=== PATIENT | male | born 1960 | race African-American/Black ===

== ENCOUNTER 2022-06-15 14:00 | Inpatient (IN) | payer OTHER ==
[2022-06-15 15:07] VITALS: BMI 28.2
[2022-06-15] MEDS ORDERED: ACETAMINOPHEN 325 MG TABLET (FP) PO PRN (16:57)
[2022-06-15] MEDS ORDERED: MAGNESIUM HYDROX 2400MG/30ML ORAL SUSPENSION 30 ML CUP PO PRN (16:57)
[2022-06-15] MEDS ORDERED: MAGNESIUM CITRATE 300 ML BOTTLE PO PRN (16:57)
[2022-06-15] MEDS ORDERED: NICOTINE 10 MG CARTRIDGE (INHALER) IH PRN (16:57)
[2022-06-15] MEDS ORDERED: LOPERAMIDE HCL 2 MG CAPSULE PO PRN (16:57)
[2022-06-15] MEDS ORDERED: MAG HYDROX/AL HYDROX/SIMETH 30 ML UNIT-DOSE CUP PO PRN (16:57)
[2022-06-15] MEDS ORDERED: guaiFENesin 200 MG/10 ML 10 ML UNIT-DOSE CUPS PO PRN (16:57)
[2022-06-15] MEDS ORDERED: P-EPHED 60MG/TRIPROLIDI 2.5MG TABLET PO PRN (16:57)
[2022-06-15] MEDS: THIAMINE HCL 100 MG TABLET (FP) PO SCH (21:35)
[2022-06-15] MEDS: MELATONIN 5 MG TABLETS PO PRN (21:35)
[2022-06-15] MEDS: ATORVASTATIN CA 20 MG TABLET (FP) PO SCH (21:35)
[2022-06-15] MEDS: INSULIN SLIDING SCALE (NOVOLOG) 1 VIAL SQ SCH (21:41)
[2022-06-15] MEDS ORDERED: TUBERCULIN PPD 5 TU/0.1ML VIAL ID ONE (21:42)
[2022-06-15] MEDS ORDERED: MELATONIN 5 MG TABLETS PO SCH (22:00)
[2022-06-16] MEDS: INSULIN SLIDING SCALE (NOVOLOG) 1 VIAL SQ SCH ×4 (06:10→21:38)
[2022-06-16] MEDS: amLODIPine BESYLATE 10 MG TABLET (FP) PO SCH (09:25)
[2022-06-16] MEDS: PRENATAL VITAMINS W/ FOLIC ACID TABLET (FP) PO SCH (09:25)
[2022-06-16] MEDS: LISINOPRIL 10 MG TABLET PO SCH (09:25)
[2022-06-16] MEDS: BACITRACIN 15 GM TUBE TOPICAL OINTMENT TP SCH ×2 (10:29→21:35)
[2022-06-16] MEDS: methaDONE HCL 40 MG DISPERSABLE TABLET PO SCH (10:33)
[2022-06-16 11:57] LABS: HEMATOCRIT 30.3 % (35.4-49); MCH 28.3 pg (25.7-33.7); MEAN CELL VOLUME 85.9 fl (80-96); MEAN PLT VOLUME 8.5 fl (7.5-11.1); PLATELET COUNT 212 10^3/uL (134-434); RBC 3.53 M/mm3 (4.00-5.60); RDW 16.7 % (11.9-15.9); WHITE BLOOD COUNT 6.3 K/mm3 (4.0-10.0)
[2022-06-16 12:01] LABS: PH,URINE 5.5 (5.0-8.0); URINE APPEARANCE CLEAR; URINE BILIRUBIN NEGATIVE (NEGATIVE); URINE COLOR YELLOW; URINE GLUCOSE (UA) NEGATIVE (NEGATIVE); URINE KETONE NEGATIVE (NEGATIVE); URINE LEUK ESTERASE NEGATIVE (NEGATIVE); URINE NITRITE NEGATIVE (NEGATIVE); URINE PROTEIN NEGATIVE (NEGATIVE); URINE UROBILINOGEN 0.2 mg/dL (0.2-1.0)
[2022-06-16 12:47] LABS: ALBUMIN 3.2 g/dl (3.4-5.0); BLOOD UREA NITROGEN 21.2 mg/dL (7-18); CALCIUM 8.6 mg/dL (8.5-10.1)
[2022-06-16 12:51] LABS: CREATININE 1.2 mg/dL (0.55-1.3)
[2022-06-16 12:52] LABS: BILIRUBIN,TOTAL 0.4 mg/dL (0.2-1); TOT PROT 6.7 g/dl (6.4-8.2)
[2022-06-16] MEDS: ESCITALOPRAM OXALATE 10 MG TABLET PO SCH (13:06)
[2022-06-16 13:36] LABS: SYPHILIS W/ RPR CONF REACTIVE (NONREACTIVE)
[2022-06-16 13:38] LABS: HIV INTERPRETATION NEGATIVE (NEGATIVE)
[2022-06-16] MEDS: ATORVASTATIN CA 20 MG TABLET (FP) PO SCH (21:35)
[2022-06-16] MEDS: THIAMINE HCL 100 MG TABLET (FP) PO SCH (21:35)
[2022-06-16] MEDS: MELATONIN 5 MG TABLETS PO PRN (21:35)
[2022-06-17] MEDS: INSULIN SLIDING SCALE (NOVOLOG) 1 VIAL SQ SCH ×4 (06:25→21:16)
[2022-06-17] MEDS: methaDONE HCL 40 MG DISPERSABLE TABLET PO SCH (06:26)
[2022-06-17] MEDS: PRENATAL VITAMINS W/ FOLIC ACID TABLET (FP) PO SCH (09:37)
[2022-06-17] MEDS: ESCITALOPRAM OXALATE 10 MG TABLET PO SCH (09:37)
[2022-06-17] MEDS: amLODIPine BESYLATE 10 MG TABLET (FP) PO SCH (09:37)
[2022-06-17] MEDS: LISINOPRIL 10 MG TABLET PO SCH (09:37)
[2022-06-17] MEDS: BACITRACIN 15 GM TUBE TOPICAL OINTMENT TP SCH ×2 (09:39→21:15)
[2022-06-17] MEDS: THIAMINE HCL 100 MG TABLET (FP) PO SCH (21:15)
[2022-06-17] MEDS: ATORVASTATIN CA 20 MG TABLET (FP) PO SCH (21:15)
[2022-06-17] MEDS: MELATONIN 5 MG TABLETS PO PRN (21:16)
[2022-06-18] MEDS: INSULIN SLIDING SCALE (NOVOLOG) 1 VIAL SQ SCH ×4 (06:47→21:08)
[2022-06-18] MEDS: methaDONE HCL 40 MG DISPERSABLE TABLET PO SCH (06:48)
[2022-06-18] MEDS: amLODIPine BESYLATE 10 MG TABLET (FP) PO SCH (09:44)
[2022-06-18] MEDS: LISINOPRIL 10 MG TABLET PO SCH (09:44)
[2022-06-18] MEDS: PRENATAL VITAMINS W/ FOLIC ACID TABLET (FP) PO SCH (09:44)
[2022-06-18] MEDS: ESCITALOPRAM OXALATE 10 MG TABLET PO SCH (09:44)
[2022-06-18] MEDS: BACITRACIN 15 GM TUBE TOPICAL OINTMENT TP SCH ×2 (09:45→21:06)
[2022-06-18] MEDS: THIAMINE HCL 100 MG TABLET (FP) PO SCH (21:06)
[2022-06-18] MEDS: MELATONIN 5 MG TABLETS PO PRN (21:06)
[2022-06-18] MEDS: ATORVASTATIN CA 20 MG TABLET (FP) PO SCH (21:06)
[2022-06-19] MEDS: methaDONE HCL 40 MG DISPERSABLE TABLET PO SCH (06:01)
[2022-06-19] MEDS: INSULIN SLIDING SCALE (NOVOLOG) 1 VIAL SQ SCH ×4 (07:07→21:05)
[2022-06-19] MEDS: ESCITALOPRAM OXALATE 10 MG TABLET PO SCH (09:48)
[2022-06-19] MEDS: amLODIPine BESYLATE 10 MG TABLET (FP) PO SCH (09:48)
[2022-06-19] MEDS: LISINOPRIL 10 MG TABLET PO SCH ×3 (09:48→21:04)
[2022-06-19] MEDS: PRENATAL VITAMINS W/ FOLIC ACID TABLET (FP) PO SCH (09:48)
[2022-06-19] MEDS: BACITRACIN 15 GM TUBE TOPICAL OINTMENT TP SCH ×2 (09:49→21:05)
[2022-06-19] MEDS ORDERED: INSULIN SLIDING SCALE (NOVOLOG) 1 VIAL SQ ONE (11:08)
[2022-06-19] MEDS: THIAMINE HCL 100 MG TABLET (FP) PO SCH (21:04)
[2022-06-19] MEDS: ATORVASTATIN CA 20 MG TABLET (FP) PO SCH (21:04)
[2022-06-19] MEDS: MELATONIN 5 MG TABLETS PO PRN (21:04)
[2022-06-20] MEDS: methaDONE HCL 40 MG DISPERSABLE TABLET PO SCH (06:25)
[2022-06-20] MEDS: INSULIN SLIDING SCALE (NOVOLOG) 1 VIAL SQ SCH ×4 (06:27→21:15)
[2022-06-20] MEDS: PRENATAL VITAMINS W/ FOLIC ACID TABLET (FP) PO SCH (09:59)
[2022-06-20] MEDS: amLODIPine BESYLATE 10 MG TABLET (FP) PO SCH (10:00)
[2022-06-20] MEDS: ESCITALOPRAM OXALATE 10 MG TABLET PO SCH (10:00)
[2022-06-20] MEDS: LISINOPRIL 10 MG TABLET PO SCH ×2 (10:00→21:13)
[2022-06-20] MEDS: BACITRACIN 15 GM TUBE TOPICAL OINTMENT TP SCH ×2 (10:01→21:13)
[2022-06-20] MEDS: MELATONIN 5 MG TABLETS PO PRN (21:13)
[2022-06-20] MEDS: THIAMINE HCL 100 MG TABLET (FP) PO SCH (21:13)
[2022-06-20] MEDS: ATORVASTATIN CA 20 MG TABLET (FP) PO SCH (21:13)
[2022-06-21] MEDS: methaDONE HCL 40 MG DISPERSABLE TABLET PO SCH (06:06)
[2022-06-21] MEDS: INSULIN SLIDING SCALE (NOVOLOG) 1 VIAL SQ SCH ×4 (06:09→21:00)
[2022-06-21] MEDS: PRENATAL VITAMINS W/ FOLIC ACID TABLET (FP) PO SCH (10:06)
[2022-06-21] MEDS: amLODIPine BESYLATE 10 MG TABLET (FP) PO SCH (10:06)
[2022-06-21] MEDS: BACITRACIN 15 GM TUBE TOPICAL OINTMENT TP SCH ×2 (10:06→21:00)
[2022-06-21] MEDS: LISINOPRIL 10 MG TABLET PO SCH ×2 (10:06→21:00)
[2022-06-21] MEDS: ESCITALOPRAM OXALATE 10 MG TABLET PO SCH (10:06)
[2022-06-21] MEDS: ATORVASTATIN CA 20 MG TABLET (FP) PO SCH (21:00)
[2022-06-21] MEDS: THIAMINE HCL 100 MG TABLET (FP) PO SCH (21:00)
[2022-06-21] MEDS: MELATONIN 5 MG TABLETS PO PRN (21:00)
[2022-06-22] MEDS: methaDONE HCL 40 MG DISPERSABLE TABLET PO SCH (05:52)
[2022-06-22] MEDS ORDERED: INSULIN SLIDING SCALE (NOVOLOG) 1 VIAL SQ ONE (05:52)
[2022-06-22] MEDS: hydrOXYzine PAMOATE 25 MG CAPSULE (FP) PO PRN (07:02)
[2022-06-22] MEDS: INSULIN SLIDING SCALE (NOVOLOG) 1 VIAL SQ SCH ×4 (07:02→21:03)
[2022-06-22] MEDS: amLODIPine BESYLATE 10 MG TABLET (FP) PO SCH (08:59)
[2022-06-22] MEDS: BACITRACIN 15 GM TUBE TOPICAL OINTMENT TP SCH ×2 (08:59→21:03)
[2022-06-22] MEDS: ESCITALOPRAM OXALATE 10 MG TABLET PO SCH (08:59)
[2022-06-22] MEDS: LISINOPRIL 10 MG TABLET PO SCH ×2 (08:59→21:02)
[2022-06-22] MEDS: PRENATAL VITAMINS W/ FOLIC ACID TABLET (FP) PO SCH (09:00)
[2022-06-22] MEDS: MELATONIN 5 MG TABLETS PO PRN (21:02)
[2022-06-22] MEDS: ATORVASTATIN CA 20 MG TABLET (FP) PO SCH (21:02)
[2022-06-22] MEDS: THIAMINE HCL 100 MG TABLET (FP) PO SCH (21:03)
[2022-06-23] MEDS: methaDONE HCL 40 MG DISPERSABLE TABLET PO SCH (06:33)
[2022-06-23] MEDS: INSULIN SLIDING SCALE (NOVOLOG) 1 VIAL SQ SCH ×4 (06:36→21:16)
[2022-06-23] MEDS: PRENATAL VITAMINS W/ FOLIC ACID TABLET (FP) PO SCH (10:10)
[2022-06-23] MEDS: amLODIPine BESYLATE 10 MG TABLET (FP) PO SCH (10:11)
[2022-06-23] MEDS: BACITRACIN 15 GM TUBE TOPICAL OINTMENT TP SCH ×2 (10:11→21:17)
[2022-06-23] MEDS: ESCITALOPRAM OXALATE 10 MG TABLET PO SCH (10:11)
[2022-06-23] MEDS: LISINOPRIL 10 MG TABLET PO SCH ×2 (10:11→21:16)
[2022-06-23] MEDS: ATORVASTATIN CA 20 MG TABLET (FP) PO SCH (21:16)
[2022-06-23] MEDS: THIAMINE HCL 100 MG TABLET (FP) PO SCH (21:16)
[2022-06-23] MEDS: MELATONIN 5 MG TABLETS PO PRN (21:16)
[2022-06-24] MEDS: methaDONE HCL 40 MG DISPERSABLE TABLET PO SCH (06:08)
[2022-06-24] MEDS: INSULIN SLIDING SCALE (NOVOLOG) 1 VIAL SQ SCH ×4 (06:11→21:06)
[2022-06-24] MEDS: LISINOPRIL 10 MG TABLET PO SCH ×2 (09:39→21:04)
[2022-06-24] MEDS: ESCITALOPRAM OXALATE 10 MG TABLET PO SCH (09:39)
[2022-06-24] MEDS: PRENATAL VITAMINS W/ FOLIC ACID TABLET (FP) PO SCH (09:39)
[2022-06-24] MEDS: BACITRACIN 15 GM TUBE TOPICAL OINTMENT TP SCH ×2 (09:40→21:04)
[2022-06-24] MEDS: amLODIPine BESYLATE 10 MG TABLET (FP) PO SCH (09:40)
[2022-06-24] MEDS ORDERED: INSULIN SLIDING SCALE (NOVOLOG) 1 VIAL SQ ONE (12:00)
[2022-06-24] MEDS: ATORVASTATIN CA 20 MG TABLET (FP) PO SCH (21:04)
[2022-06-24] MEDS: MELATONIN 5 MG TABLETS PO PRN (21:04)
[2022-06-24] MEDS: THIAMINE HCL 100 MG TABLET (FP) PO SCH (21:04)
[2022-06-25] MEDS: methaDONE HCL 40 MG DISPERSABLE TABLET PO SCH (05:58)
[2022-06-25] MEDS: INSULIN SLIDING SCALE (NOVOLOG) 1 VIAL SQ SCH ×4 (06:00→21:04)
[2022-06-25] MEDS: ESCITALOPRAM OXALATE 10 MG TABLET PO SCH (09:22)
[2022-06-25] MEDS: PRENATAL VITAMINS W/ FOLIC ACID TABLET (FP) PO SCH (09:22)
[2022-06-25] MEDS: LISINOPRIL 10 MG TABLET PO SCH ×2 (09:22→21:03)
[2022-06-25] MEDS: amLODIPine BESYLATE 10 MG TABLET (FP) PO SCH (09:22)
[2022-06-25] MEDS: BACITRACIN 15 GM TUBE TOPICAL OINTMENT TP SCH ×2 (09:23→21:03)
[2022-06-25] MEDS: THIAMINE HCL 100 MG TABLET (FP) PO SCH (21:03)
[2022-06-25] MEDS: ATORVASTATIN CA 20 MG TABLET (FP) PO SCH (21:03)
[2022-06-25] MEDS: MELATONIN 5 MG TABLETS PO PRN (21:03)
[2022-06-26] MEDS: methaDONE HCL 40 MG DISPERSABLE TABLET PO SCH (06:03)
[2022-06-26] MEDS: INSULIN SLIDING SCALE (NOVOLOG) 1 VIAL SQ SCH ×4 (06:05→21:45)
[2022-06-26] MEDS: BACITRACIN 15 GM TUBE TOPICAL OINTMENT TP SCH ×2 (10:09→21:45)
[2022-06-26] MEDS: amLODIPine BESYLATE 10 MG TABLET (FP) PO SCH (10:10)
[2022-06-26] MEDS: ESCITALOPRAM OXALATE 10 MG TABLET PO SCH (10:10)
[2022-06-26] MEDS: PRENATAL VITAMINS W/ FOLIC ACID TABLET (FP) PO SCH (10:10)
[2022-06-26] MEDS: LISINOPRIL 10 MG TABLET PO SCH ×2 (10:10→21:45)
[2022-06-26] MEDS: ATORVASTATIN CA 20 MG TABLET (FP) PO SCH (21:45)
[2022-06-26] MEDS: MELATONIN 5 MG TABLETS PO PRN (21:45)
[2022-06-26] MEDS: THIAMINE HCL 100 MG TABLET (FP) PO SCH (21:45)
[2022-06-27] MEDS: INSULIN SLIDING SCALE (NOVOLOG) 1 VIAL SQ SCH ×4 (06:14→21:17)
[2022-06-27] MEDS: methaDONE HCL 40 MG DISPERSABLE TABLET PO SCH (06:15)
[2022-06-27] MEDS: IBUPROFEN 400 MG TABLET (FP) PO PRN (06:17)
[2022-06-27] MEDS: hydrOXYzine PAMOATE 25 MG CAPSULE (FP) PO PRN (06:17)
[2022-06-27] MEDS: amLODIPine BESYLATE 10 MG TABLET (FP) PO SCH ×2 (06:19→11:00)
[2022-06-27] MEDS: PRENATAL VITAMINS W/ FOLIC ACID TABLET (FP) PO SCH (10:25)
[2022-06-27] MEDS: ESCITALOPRAM OXALATE 10 MG TABLET PO SCH (10:26)
[2022-06-27] MEDS: BACITRACIN 15 GM TUBE TOPICAL OINTMENT TP SCH ×2 (10:26→21:16)
[2022-06-27] MEDS: LISINOPRIL 10 MG TABLET PO SCH ×2 (11:00→21:16)
[2022-06-27] MEDS: MELATONIN 5 MG TABLETS PO PRN (21:16)
[2022-06-27] MEDS: ATORVASTATIN CA 20 MG TABLET (FP) PO SCH (21:16)
[2022-06-27] MEDS: THIAMINE HCL 100 MG TABLET (FP) PO SCH (21:16)
[2022-06-28] MEDS: methaDONE HCL 40 MG DISPERSABLE TABLET PO SCH (06:25)
[2022-06-28] MEDS: INSULIN SLIDING SCALE (NOVOLOG) 1 VIAL SQ SCH ×4 (06:29→21:47)
[2022-06-28] MEDS: amLODIPine BESYLATE 10 MG TABLET (FP) PO SCH (10:02)
[2022-06-28] MEDS: ESCITALOPRAM OXALATE 10 MG TABLET PO SCH (10:02)
[2022-06-28] MEDS: PRENATAL VITAMINS W/ FOLIC ACID TABLET (FP) PO SCH (10:02)
[2022-06-28] MEDS: LISINOPRIL 10 MG TABLET PO SCH ×2 (10:02→21:00)
[2022-06-28] MEDS: BACITRACIN 15 GM TUBE TOPICAL OINTMENT TP SCH ×2 (10:02→21:00)
[2022-06-28] MEDS: THIAMINE HCL 100 MG TABLET (FP) PO SCH (21:00)
[2022-06-28] MEDS: ATORVASTATIN CA 20 MG TABLET (FP) PO SCH (21:00)
[2022-06-28] MEDS: MELATONIN 5 MG TABLETS PO PRN (21:00)
[2022-06-28] MEDS ORDERED: INSULIN (NOVOLOG) ASPART 100 UNITS/ML 10ML VIAL SQ ONE (21:07)
[2022-06-29] MEDS: methaDONE HCL 40 MG DISPERSABLE TABLET PO SCH (05:57)
[2022-06-29] MEDS: INSULIN SLIDING SCALE (NOVOLOG) 1 VIAL SQ SCH ×4 (06:02→21:00)
[2022-06-29] MEDS: hydrOXYzine PAMOATE 25 MG CAPSULE (FP) PO PRN (06:04)
[2022-06-29] MEDS: LISINOPRIL 10 MG TABLET PO SCH ×2 (10:18→21:00)
[2022-06-29] MEDS: ESCITALOPRAM OXALATE 10 MG TABLET PO SCH (10:18)
[2022-06-29] MEDS: PRENATAL VITAMINS W/ FOLIC ACID TABLET (FP) PO SCH (10:18)
[2022-06-29] MEDS: amLODIPine BESYLATE 10 MG TABLET (FP) PO SCH (10:18)
[2022-06-29] MEDS: BACITRACIN 15 GM TUBE TOPICAL OINTMENT TP SCH ×2 (10:18→21:00)
[2022-06-29] MEDS ORDERED: INSULIN SLIDING SCALE (NOVOLOG) 1 VIAL SQ ONE (12:13)
[2022-06-29] MEDS: THIAMINE HCL 100 MG TABLET (FP) PO SCH (21:00)
[2022-06-29] MEDS: MELATONIN 5 MG TABLETS PO PRN (21:00)
[2022-06-29] MEDS: ATORVASTATIN CA 20 MG TABLET (FP) PO SCH (21:00)
[2022-06-30] MEDS: INSULIN SLIDING SCALE (NOVOLOG) 1 VIAL SQ SCH ×4 (06:11→21:32)
[2022-06-30] MEDS: hydrOXYzine PAMOATE 25 MG CAPSULE (FP) PO PRN (06:12)
[2022-06-30] MEDS: methaDONE HCL 40 MG DISPERSABLE TABLET PO SCH (06:12)
[2022-06-30] MEDS: PRENATAL VITAMINS W/ FOLIC ACID TABLET (FP) PO SCH (10:09)
[2022-06-30] MEDS: LISINOPRIL 10 MG TABLET PO SCH ×2 (10:10→21:30)
[2022-06-30] MEDS: BACITRACIN 15 GM TUBE TOPICAL OINTMENT TP SCH ×2 (10:10→22:32)
[2022-06-30] MEDS: amLODIPine BESYLATE 10 MG TABLET (FP) PO SCH (10:10)
[2022-06-30] MEDS: ESCITALOPRAM OXALATE 10 MG TABLET PO SCH (10:10)
[2022-06-30] MEDS: ATORVASTATIN CA 20 MG TABLET (FP) PO SCH (21:30)
[2022-06-30] MEDS: MELATONIN 5 MG TABLETS PO PRN (21:30)
[2022-06-30] MEDS: THIAMINE HCL 100 MG TABLET (FP) PO SCH (21:30)
[2022-07-01] MEDS: hydrOXYzine PAMOATE 25 MG CAPSULE (FP) PO PRN (05:57)
[2022-07-01] MEDS: methaDONE HCL 40 MG DISPERSABLE TABLET PO SCH (05:57)
[2022-07-01] MEDS: INSULIN SLIDING SCALE (NOVOLOG) 1 VIAL SQ SCH ×4 (06:00→21:42)
[2022-07-01] MEDS: ESCITALOPRAM OXALATE 10 MG TABLET PO SCH (10:19)
[2022-07-01] MEDS: PRENATAL VITAMINS W/ FOLIC ACID TABLET (FP) PO SCH (10:19)
[2022-07-01] MEDS: LISINOPRIL 10 MG TABLET PO SCH ×2 (10:19→21:38)
[2022-07-01] MEDS: amLODIPine BESYLATE 10 MG TABLET (FP) PO SCH (10:19)
[2022-07-01] MEDS: BACITRACIN 15 GM TUBE TOPICAL OINTMENT TP SCH ×2 (10:20→21:38)
[2022-07-01] MEDS ORDERED: INSULIN SLIDING SCALE (NOVOLOG) 1 VIAL SQ ONE (11:55)
[2022-07-01] MEDS: THIAMINE HCL 100 MG TABLET (FP) PO SCH (21:39)
[2022-07-01] MEDS: MELATONIN 5 MG TABLETS PO PRN (21:39)
[2022-07-01] MEDS: ATORVASTATIN CA 20 MG TABLET (FP) PO SCH (21:39)
[2022-07-02] MEDS: methaDONE HCL 40 MG DISPERSABLE TABLET PO SCH (05:53)
[2022-07-02] MEDS: hydrOXYzine PAMOATE 25 MG CAPSULE (FP) PO PRN (05:53)
[2022-07-02] MEDS: INSULIN SLIDING SCALE (NOVOLOG) 1 VIAL SQ SCH ×4 (06:06→22:00)
[2022-07-02] MEDS: PRENATAL VITAMINS W/ FOLIC ACID TABLET (FP) PO SCH (09:59)
[2022-07-02] MEDS: BACITRACIN 15 GM TUBE TOPICAL OINTMENT TP SCH ×2 (09:59→21:24)
[2022-07-02] MEDS: LISINOPRIL 10 MG TABLET PO SCH ×2 (10:00→21:24)
[2022-07-02] MEDS: ESCITALOPRAM OXALATE 10 MG TABLET PO SCH (10:00)
[2022-07-02] MEDS: amLODIPine BESYLATE 10 MG TABLET (FP) PO SCH (10:00)
[2022-07-02] MEDS: ATORVASTATIN CA 20 MG TABLET (FP) PO SCH (21:24)
[2022-07-02] MEDS: THIAMINE HCL 100 MG TABLET (FP) PO SCH (21:24)
[2022-07-02] MEDS: MELATONIN 5 MG TABLETS PO PRN (21:24)
[2022-07-03] MEDS: INSULIN SLIDING SCALE (NOVOLOG) 1 VIAL SQ SCH ×4 (06:02→21:00)
[2022-07-03] MEDS: IBUPROFEN 400 MG TABLET (FP) PO PRN (06:03)
[2022-07-03] MEDS: hydrOXYzine PAMOATE 25 MG CAPSULE (FP) PO PRN (06:03)
[2022-07-03] MEDS: methaDONE HCL 40 MG DISPERSABLE TABLET PO SCH (06:03)
[2022-07-03] MEDS: amLODIPine BESYLATE 10 MG TABLET (FP) PO SCH (09:57)
[2022-07-03] MEDS: BACITRACIN 15 GM TUBE TOPICAL OINTMENT TP SCH ×2 (09:57→21:01)
[2022-07-03] MEDS: ESCITALOPRAM OXALATE 10 MG TABLET PO SCH (09:57)
[2022-07-03] MEDS: LISINOPRIL 10 MG TABLET PO SCH ×2 (09:57→21:00)
[2022-07-03] MEDS: PRENATAL VITAMINS W/ FOLIC ACID TABLET (FP) PO SCH (09:58)
[2022-07-03] MEDS: MELATONIN 5 MG TABLETS PO PRN (21:00)
[2022-07-03] MEDS: THIAMINE HCL 100 MG TABLET (FP) PO SCH (21:00)
[2022-07-03] MEDS: ATORVASTATIN CA 20 MG TABLET (FP) PO SCH (21:00)
[2022-07-04] MEDS: hydrOXYzine PAMOATE 25 MG CAPSULE (FP) PO PRN (05:58)
[2022-07-04] MEDS: methaDONE HCL 40 MG DISPERSABLE TABLET PO SCH (05:59)
[2022-07-04] MEDS: INSULIN SLIDING SCALE (NOVOLOG) 1 VIAL SQ SCH ×4 (06:00→21:03)
[2022-07-04] MEDS: BACITRACIN 15 GM TUBE TOPICAL OINTMENT TP SCH ×2 (10:35→21:03)
[2022-07-04] MEDS: LISINOPRIL 10 MG TABLET PO SCH ×2 (10:35→21:03)
[2022-07-04] MEDS: ESCITALOPRAM OXALATE 10 MG TABLET PO SCH (10:36)
[2022-07-04] MEDS: amLODIPine BESYLATE 10 MG TABLET (FP) PO SCH (10:36)
[2022-07-04] MEDS: PRENATAL VITAMINS W/ FOLIC ACID TABLET (FP) PO SCH (10:36)
[2022-07-04] MEDS: THIAMINE HCL 100 MG TABLET (FP) PO SCH (21:02)
[2022-07-04] MEDS: MELATONIN 5 MG TABLETS PO PRN (21:02)
[2022-07-04] MEDS: ATORVASTATIN CA 20 MG TABLET (FP) PO SCH (21:03)
[2022-07-05] MEDS: hydrOXYzine PAMOATE 25 MG CAPSULE (FP) PO PRN (06:26)
[2022-07-05] MEDS: methaDONE HCL 40 MG DISPERSABLE TABLET PO SCH (06:26)
[2022-07-05] MEDS: INSULIN SLIDING SCALE (NOVOLOG) 1 VIAL SQ SCH ×4 (06:28→21:14)
[2022-07-05] MEDS: ESCITALOPRAM OXALATE 10 MG TABLET PO SCH (10:14)
[2022-07-05] MEDS: BACITRACIN 15 GM TUBE TOPICAL OINTMENT TP SCH ×2 (10:14→21:12)
[2022-07-05] MEDS: LISINOPRIL 10 MG TABLET PO SCH ×2 (10:14→21:12)
[2022-07-05] MEDS: amLODIPine BESYLATE 10 MG TABLET (FP) PO SCH (10:14)
[2022-07-05] MEDS: PRENATAL VITAMINS W/ FOLIC ACID TABLET (FP) PO SCH (10:14)
[2022-07-05] MEDS: THIAMINE HCL 100 MG TABLET (FP) PO SCH (21:12)
[2022-07-05] MEDS: ATORVASTATIN CA 20 MG TABLET (FP) PO SCH (21:12)
[2022-07-05] MEDS: MELATONIN 5 MG TABLETS PO PRN (21:12)
[2022-07-06] MEDS: hydrOXYzine PAMOATE 25 MG CAPSULE (FP) PO PRN (06:19)
[2022-07-06] MEDS: methaDONE HCL 40 MG DISPERSABLE TABLET PO SCH (06:19)
[2022-07-06] MEDS: INSULIN SLIDING SCALE (NOVOLOG) 1 VIAL SQ SCH ×4 (06:20→21:03)
[2022-07-06] MEDS: amLODIPine BESYLATE 10 MG TABLET (FP) PO SCH (10:12)
[2022-07-06] MEDS: BACITRACIN 15 GM TUBE TOPICAL OINTMENT TP SCH ×2 (10:13→21:03)
[2022-07-06] MEDS: LISINOPRIL 10 MG TABLET PO SCH ×2 (10:13→21:01)
[2022-07-06] MEDS: ESCITALOPRAM OXALATE 10 MG TABLET PO SCH (10:13)
[2022-07-06] MEDS: PRENATAL VITAMINS W/ FOLIC ACID TABLET (FP) PO SCH (10:13)
[2022-07-06] MEDS: MELATONIN 5 MG TABLETS PO PRN (21:01)
[2022-07-06] MEDS: THIAMINE HCL 100 MG TABLET (FP) PO SCH (21:01)
[2022-07-06] MEDS: ATORVASTATIN CA 20 MG TABLET (FP) PO SCH (21:01)
[2022-07-06] MEDS: INSULIN (LEVEMIR) 100 UNITS/ML UNITS SQ SCH (21:03)
[2022-07-06] MEDS ORDERED: INSULIN (LEVEMIR) 100 UNITS/ML UNITS SQ SCH (22:00)
[2022-07-07] MEDS: methaDONE HCL 40 MG DISPERSABLE TABLET PO SCH (06:19)
[2022-07-07] MEDS: hydrOXYzine PAMOATE 25 MG CAPSULE (FP) PO PRN (06:20)
[2022-07-07] MEDS: INSULIN SLIDING SCALE (NOVOLOG) 1 VIAL SQ SCH ×4 (06:22→21:01)
[2022-07-07] MEDS: PRENATAL VITAMINS W/ FOLIC ACID TABLET (FP) PO SCH (09:37)
[2022-07-07] MEDS: BACITRACIN 15 GM TUBE TOPICAL OINTMENT TP SCH ×2 (09:37→20:59)
[2022-07-07] MEDS: LISINOPRIL 10 MG TABLET PO SCH ×2 (09:38→20:59)
[2022-07-07] MEDS: ESCITALOPRAM OXALATE 10 MG TABLET PO SCH (09:38)
[2022-07-07] MEDS: amLODIPine BESYLATE 10 MG TABLET (FP) PO SCH (09:38)
[2022-07-07] MEDS: ATORVASTATIN CA 20 MG TABLET (FP) PO SCH (20:59)
[2022-07-07] MEDS: MELATONIN 5 MG TABLETS PO PRN (20:59)
[2022-07-07] MEDS: THIAMINE HCL 100 MG TABLET (FP) PO SCH (21:00)
[2022-07-07] MEDS: INSULIN (LEVEMIR) 100 UNITS/ML UNITS SQ SCH (21:01)
[2022-07-08] MEDS: hydrOXYzine PAMOATE 25 MG CAPSULE (FP) PO PRN ×2 (06:20→21:34)
[2022-07-08] MEDS: methaDONE HCL 40 MG DISPERSABLE TABLET PO SCH (06:20)
[2022-07-08] MEDS: INSULIN SLIDING SCALE (NOVOLOG) 1 VIAL SQ SCH ×4 (06:23→21:06)
[2022-07-08] MEDS: BACITRACIN 15 GM TUBE TOPICAL OINTMENT TP SCH ×2 (09:56→21:06)
[2022-07-08] MEDS: amLODIPine BESYLATE 10 MG TABLET (FP) PO SCH (09:56)
[2022-07-08] MEDS: LISINOPRIL 10 MG TABLET PO SCH ×2 (09:56→21:06)
[2022-07-08] MEDS: PRENATAL VITAMINS W/ FOLIC ACID TABLET (FP) PO SCH (09:56)
[2022-07-08] MEDS: ESCITALOPRAM OXALATE 10 MG TABLET PO SCH (09:56)
[2022-07-08] MEDS ORDERED: INSULIN SLIDING SCALE (NOVOLOG) 1 VIAL SQ ONE (11:46)
[2022-07-08] MEDS: ATORVASTATIN CA 20 MG TABLET (FP) PO SCH (21:05)
[2022-07-08] MEDS: MELATONIN 5 MG TABLETS PO PRN (21:06)
[2022-07-08] MEDS: INSULIN (LEVEMIR) 100 UNITS/ML UNITS SQ SCH (21:06)
[2022-07-08] MEDS: THIAMINE HCL 100 MG TABLET (FP) PO SCH (21:06)
[2022-07-09] MEDS: hydrOXYzine PAMOATE 25 MG CAPSULE (FP) PO PRN (06:08)
[2022-07-09] MEDS: methaDONE HCL 40 MG DISPERSABLE TABLET PO SCH (06:09)
[2022-07-09] MEDS: IBUPROFEN 400 MG TABLET (FP) PO PRN (06:10)
[2022-07-09] MEDS: INSULIN SLIDING SCALE (NOVOLOG) 1 VIAL SQ SCH ×4 (06:12→21:12)
[2022-07-09] MEDS: PRENATAL VITAMINS W/ FOLIC ACID TABLET (FP) PO SCH (09:51)
[2022-07-09] MEDS: amLODIPine BESYLATE 10 MG TABLET (FP) PO SCH (09:52)
[2022-07-09] MEDS: ESCITALOPRAM OXALATE 10 MG TABLET PO SCH (09:52)
[2022-07-09] MEDS: LISINOPRIL 10 MG TABLET PO SCH ×2 (09:52→21:10)
[2022-07-09] MEDS: BACITRACIN 15 GM TUBE TOPICAL OINTMENT TP SCH ×2 (09:53→21:12)
[2022-07-09] MEDS ORDERED: INSULIN SLIDING SCALE (NOVOLOG) 1 VIAL SQ ONE (11:52)
[2022-07-09] MEDS: ATORVASTATIN CA 20 MG TABLET (FP) PO SCH (21:09)
[2022-07-09] MEDS: MELATONIN 5 MG TABLETS PO PRN (21:10)
[2022-07-09] MEDS: THIAMINE HCL 100 MG TABLET (FP) PO SCH (21:10)
[2022-07-09] MEDS: INSULIN (LEVEMIR) 100 UNITS/ML UNITS SQ SCH (21:12)
[2022-07-10] MEDS: methaDONE HCL 40 MG DISPERSABLE TABLET PO SCH (06:22)
[2022-07-10] MEDS: INSULIN SLIDING SCALE (NOVOLOG) 1 VIAL SQ SCH ×4 (06:24→21:38)
[2022-07-10] MEDS: BACITRACIN 15 GM TUBE TOPICAL OINTMENT TP SCH ×2 (09:47→21:41)
[2022-07-10] MEDS: LISINOPRIL 10 MG TABLET PO SCH ×2 (09:47→21:41)
[2022-07-10] MEDS: PRENATAL VITAMINS W/ FOLIC ACID TABLET (FP) PO SCH (09:47)
[2022-07-10] MEDS: amLODIPine BESYLATE 10 MG TABLET (FP) PO SCH (09:47)
[2022-07-10] MEDS: ESCITALOPRAM OXALATE 10 MG TABLET PO SCH (09:47)
[2022-07-10] MEDS: INSULIN (LEVEMIR) 100 UNITS/ML UNITS SQ SCH (21:39)
[2022-07-10] MEDS: MELATONIN 5 MG TABLETS PO PRN (21:40)
[2022-07-10] MEDS: ATORVASTATIN CA 20 MG TABLET (FP) PO SCH (21:40)
[2022-07-10] MEDS: THIAMINE HCL 100 MG TABLET (FP) PO SCH (21:40)
[2022-07-11] MEDS: methaDONE HCL 40 MG DISPERSABLE TABLET PO SCH (06:33)
[2022-07-11] MEDS: INSULIN SLIDING SCALE (NOVOLOG) 1 VIAL SQ SCH ×4 (06:34→21:10)
[2022-07-11 06:58] VITALS: RESP 18
[2022-07-11] MEDS: ESCITALOPRAM OXALATE 10 MG TABLET PO SCH (09:49)
[2022-07-11] MEDS: BACITRACIN 15 GM TUBE TOPICAL OINTMENT TP SCH ×2 (09:49→21:09)
[2022-07-11] MEDS: PRENATAL VITAMINS W/ FOLIC ACID TABLET (FP) PO SCH (09:50)
[2022-07-11] MEDS: amLODIPine BESYLATE 10 MG TABLET (FP) PO SCH (09:53)
[2022-07-11] MEDS: LISINOPRIL 10 MG TABLET PO SCH ×2 (09:53→21:09)
[2022-07-11] MEDS ORDERED: INSULIN SLIDING SCALE (NOVOLOG) 1 VIAL SQ ONE (11:54)
[2022-07-11] MEDS: THIAMINE HCL 100 MG TABLET (FP) PO SCH (21:09)
[2022-07-11] MEDS: ATORVASTATIN CA 20 MG TABLET (FP) PO SCH (21:09)
[2022-07-11] MEDS: MELATONIN 5 MG TABLETS PO PRN (21:09)
[2022-07-11] MEDS: INSULIN (LEVEMIR) 100 UNITS/ML UNITS SQ SCH (21:10)
[2022-07-12] MEDS: IBUPROFEN 400 MG TABLET (FP) PO PRN (06:01)
[2022-07-12] MEDS: hydrOXYzine PAMOATE 25 MG CAPSULE (FP) PO PRN (06:01)
[2022-07-12] MEDS: methaDONE HCL 40 MG DISPERSABLE TABLET PO SCH (06:02)
[2022-07-12] MEDS ORDERED: LISINOPRIL 10 MG TABLET PO ONE (06:03)
[2022-07-12] MEDS: INSULIN SLIDING SCALE (NOVOLOG) 1 VIAL SQ SCH ×4 (06:06→21:00)
[2022-07-12] MEDS: amLODIPine BESYLATE 10 MG TABLET (FP) PO SCH ×2 (06:22→10:29)
[2022-07-12] MEDS ORDERED: amLODIPine BESYLATE 10 MG TABLET (FP) PO SCH (10:00)
[2022-07-12] MEDS: PRENATAL VITAMINS W/ FOLIC ACID TABLET (FP) PO SCH (10:13)
[2022-07-12] MEDS: ESCITALOPRAM OXALATE 10 MG TABLET PO SCH (10:13)
[2022-07-12] MEDS: BACITRACIN 15 GM TUBE TOPICAL OINTMENT TP SCH ×2 (10:13→21:00)
[2022-07-12] MEDS: LISINOPRIL 10 MG TABLET PO SCH ×2 (11:00→21:00)
[2022-07-12] MEDS ORDERED: INSULIN SLIDING SCALE (NOVOLOG) 1 VIAL SQ ONE (12:19)
[2022-07-12] MEDS: ATORVASTATIN CA 20 MG TABLET (FP) PO SCH (21:00)
[2022-07-12] MEDS: MELATONIN 5 MG TABLETS PO PRN (21:00)
[2022-07-12] MEDS: THIAMINE HCL 100 MG TABLET (FP) PO SCH (21:00)
[2022-07-12] MEDS: INSULIN (LEVEMIR) 100 UNITS/ML UNITS SQ SCH (21:01)
[2022-07-13] MEDS: hydrOXYzine PAMOATE 25 MG CAPSULE (FP) PO PRN (06:17)
[2022-07-13] MEDS: IBUPROFEN 400 MG TABLET (FP) PO PRN (06:18)
[2022-07-13] MEDS: methaDONE HCL 40 MG DISPERSABLE TABLET PO SCH (06:19)
[2022-07-13] MEDS: INSULIN SLIDING SCALE (NOVOLOG) 1 VIAL SQ SCH (06:22)
[2022-07-13 06:59] VITALS: TEMP 98.6
[2022-07-13] MEDS: PRENATAL VITAMINS W/ FOLIC ACID TABLET (FP) PO SCH (09:01)
[2022-07-13] MEDS: ESCITALOPRAM OXALATE 10 MG TABLET PO SCH (09:01)
[2022-07-13] MEDS: LISINOPRIL 10 MG TABLET PO SCH (09:01)
[2022-07-13] MEDS: amLODIPine BESYLATE 10 MG TABLET (FP) PO SCH (09:01)
[2022-07-13] MEDS: BACITRACIN 15 GM TUBE TOPICAL OINTMENT TP SCH (09:02)
[2022-07-13 09:04] VITALS: BP 134/76; PULSE 63
== END 2022-07-13 09:06 | disposition home or self-care (01) | DRG 772 ==
LOC: YASAS 14:00 → Y3W 19:40
PROVIDERS: ADMIT Allergy & Immunology; ATTEND Surgery
PROC: HZ42ZZZ Group Counseling for Substance Abuse Treatment, Cognitive-Behavioral (ICD-10-PCS; principal; 2022-06-15)
DX: F11.20 Opioid dependence, uncomplicated (principal); F19.280 Other psychoactive substance dependence with psychoactive substance-induced anxiety disorder; I10 Essential (primary) hypertension; E78.5 Hyperlipidemia, unspecified; E11.65 Type 2 diabetes mellitus with hyperglycemia; E11.621 Type 2 diabetes mellitus with foot ulcer; L97.521 Non-pressure chronic ulcer of other part of left foot limited to breakdown of skin; Z79.4 Long term (current) use of insulin; Z86.69 Personal history of other diseases of the nervous system and sense organs; Z89.422 Acquired absence of other left toe(s); Z89.421 Acquired absence of other right toe(s); Z87.891 Personal history of nicotine dependence
CPT/HCPCS: 36415; 73630-TC-LT; 80053; 81003; 82962; 85027; 86593; 86780; 86803; 87389; 87811; C9803-CS; U0003; U0005